=== PATIENT | female | born 1980 | race Caucasian/White ===

== ENCOUNTER 2024-10-09 11:32 | Emergency (ER) | payer OTHER ==
[~2024-10-09] VITALS: Ht 167.6 cm; Wt 89.0 kg
[2024-10-09 11:34] VITALS: TEMP 37.1; O2SAT 100
[2024-10-09 12:00] VITALS: BP 119/88
[2024-10-09] MEDS: LIDOCAINE 5% PATCH TOP SCH (12:00)
[2024-10-09] MEDS: CYCLOBENZAPRINE 10MG TABLET PO ONE (12:00)
[2024-10-09] MEDS: IBUPROFEN 600MG TABLET PO ONE (12:00)
[2024-10-09] MEDS ORDERED: CYCL10TA21 MT (13:49)
[2024-10-09] MEDS ORDERED: IBUP-2029 MT (13:49)
[2024-10-09] MEDS ORDERED: LIDO700A30 TP (13:49)
[2024-10-09 14:10] VITALS: PULSE 71; RESP 16; O2SAT 100
== END 2024-10-09 14:10 | disposition home or self-care (01) ==
LOC: ER 11:32
DX: M54.2 Cervicalgia (principal); M54.50 Low back pain, unspecified
CPT/HCPCS: 72040; 72100; 99284; Z7610 ×3; A4606